=== PATIENT | female | born 1995 | race African-American/Black ===

== ENCOUNTER 2019-11-16 14:22 | Emergency (ER) | payer MEDICAID, OTHER ==
[~2019-11-16] VITALS: Ht 152.4 cm; Wt 120.0 kg
[2019-11-16 17:29] VITALS: BP 138/55
== END 2019-11-16 20:51 | disposition left against medical advice (07) ==
LOC: ER 14:22
DX: Z53.21 Procedure and treatment not carried out due to patient leaving prior to being seen by health care provider (principal)

== ENCOUNTER 2025-01-04 19:48 | Emergency (ER) | payer MEDICAID ==
[~2025-01-04] VITALS: Ht 160 cm; Wt 90.0 kg
[2025-01-04 19:50] VITALS: BP 150/97; PULSE 75; RESP 16; TEMP 37; O2SAT 100
[2025-01-04] MEDS ORDERED: DIPHENHYDRAMINE 50MG CAPSULE PO ONE (21:00)
[2025-01-04] MEDS: DIPHENHYDRAMINE 25MG CAPSULE PO NR (21:08)
[2025-01-04] MEDS: FAMOTIDINE 20MG TABLET PO ONE (21:08)
[2025-01-04] MEDS: PREDNISONE 20MG TABLET PO ONE (21:08)
[2025-01-04] MEDS ORDERED: EPIN0.3P3 IM (21:27)
[2025-01-04] MEDS ORDERED: P20 MT (21:27)
[2025-01-04] MEDS ORDERED: DIPH25CA83 MT (21:27)
[2025-01-04] MEDS: KETOROLAC 30MG/ML VIAL IM ONE (22:02)
== END 2025-01-04 22:25 | disposition home or self-care (01) ==
LOC: ER 19:48
DX: T78.40XA Allergy, unspecified, initial encounter (principal); G47.419 Narcolepsy without cataplexy; R56.9 Unspecified convulsions; Z79.52 Long term (current) use of systemic steroids; Y92.89 Other specified places as the place of occurrence of the external cause
CPT/HCPCS: 99284; J1885; Q0163; J7512